=== PATIENT | female | born 1940 | race Caucasian/White ===

== ENCOUNTER 2020-09-30 18:35 | Emergency (ER) | payer OTHER ==
[~2020-09-30] VITALS: Ht 154.9 cm; Wt 59.0 kg
[2020-09-30] MEDS ORDERED: PREDNISOLONE1 GM MC (18:49)
[2020-09-30] MEDS ORDERED: NORVASC5 MG PO (18:50)
[2020-09-30] MEDS ORDERED: TOPROL XL100 M1 PO (18:50)
[2020-09-30] MEDS ORDERED: LOSARTAN-HCTZ1 EACH PO (18:51)
[2020-09-30] MEDS ORDERED: LIPITOR20 MG PO (18:51)
[2020-09-30] MEDS ORDERED: JANUVIA25 MG PO (18:52)
[2020-09-30] MEDS ORDERED: GLIMEPIRIDE4 MG (18:52)
== END 2020-09-30 22:48 | disposition home or self-care (01) ==
LOC: ER 18:35
DX: S90.02XA Contusion of left ankle, initial encounter (principal); W01.198A Fall on same level from slipping, tripping and stumbling with subsequent striking against other object, initial encounter; Y93.89 Activity, other specified; Y92.512 Supermarket, store or market as the place of occurrence of the external cause; Y99.8 Other external cause status

== ENCOUNTER 2020-10-17 07:51 | Outpatient (CLI) | payer OTHER ==
[~2020-10-17 07:51] MED LIST: GLIMEPIRIDE4 MG; JANUVIA25 MG PO; LIPITOR20 MG PO; LOSARTAN-HCTZ1 EACH PO; NORVASC5 MG PO; PREDNISOLONE1 GM MC; TOPROL XL100 M1 PO
== END 2020-10-17 07:56 | disposition home or self-care (01) ==
LOC: RAD 07:51
PROVIDERS: ATTEND Orthopaedic Surgery
DX: S82.64XA Nondisplaced fracture of lateral malleolus of right fibula, initial encounter for closed fracture (principal); Y99.8 Other external cause status

== ENCOUNTER 2020-11-28 08:09 | Outpatient (CLI) | payer OTHER | END 2020-11-28 08:16 | disposition home or self-care (01) | LOC: RAD 08:09 | PROVIDERS: ATTEND Orthopaedic Surgery | DX: S82.64XD Nondisplaced fracture of lateral malleolus of right fibula, subsequent encounter for closed fracture with routine healing (principal) ==